=== PATIENT | male | born 1965 | race Caucasian/White ===

== ENCOUNTER 2017-07-19 11:44 | Emergency (ER) | payer MEDICAID ==
[~2017-07-19] VITALS: Ht 165.1 cm; Wt 73.0 kg
[2017-07-19 13:03] LABS: BASOPHILS % 0.6 % (0.0-2.0); EOSINOPHILS % 0.8 % (0.0-5.0); HEMATOCRIT. 41.4 % (42.0-52.0); HEMOGLOBIN. 14.3 g/dL (14.0-18.0); LYMPHOCYTES % 30.9 % (20.0-50.0); MEAN CORPUSCULAR HEMOGLOBIN 32.3 pg (28.0-32.0); MEAN CORPUSCULAR VOLUME 93.3 fL (80.0-94.0); MEAN PLATELET VOLUME 6.6 fl (7.4-10.4); MONOCYTES % 8.9 % (2.0-8.0); NEUTROPHILS % 58.8 % (40.0-76.0); PLATELET 153 x1000/uL (130-400); RED BLOOD CELL COUNT 4.44 mill/uL (4.7-6.1); RED CELL DISTRIBUTION WIDTH 13.5 % (11.6-14.6)
[2017-07-19 13:07] LABS: CHLORIDE 104 mEq/L (98-107)
[2017-07-19 13:15] VITALS: BP 116/76
== END 2017-07-19 14:32 | disposition home or self-care (01) ==
LOC: ER 12:17
DX: R07.9 Chest pain, unspecified (principal); R20.0 Anesthesia of skin; G50.0 Trigeminal neuralgia; E78.00 Pure hypercholesterolemia, unspecified
CPT/HCPCS: 36415; 71045; 80053; 83690; 84484; 85025; 85379; 93005; 99285; Z7610

== ENCOUNTER 2021-12-10 18:28 | Inpatient (IN) | payer MEDICAID, OTHER ==
[~2021-12-10] VITALS: Ht 165.1 cm; Wt 72.1 kg
[2021-12-10 19:46] LABS: BASOPHILS % 0.9 % (0.0-2.0); EOSINOPHILS % 0.3 % (0.0-5.0); LYMPHOCYTES % 21.6 % (20.0-50.0); MEAN CORPUSCULAR HEMOGLOBIN 34.1 pg (28.0-32.0); MEAN CORPUSCULAR VOLUME 102.3 fL (80.0-94.0); MEAN PLATELET VOLUME 7.8 fl (7.4-10.4); MONOCYTES % 8.4 % (2.0-8.0); NEUTROPHILS % 68.8 % (40.0-76.0); PLATELET 181 x1000/uL (130-400); RED CELL DISTRIBUTION WIDTH 14.4 % (11.6-14.6)
[2021-12-10 19:51] LABS: HEMATOCRIT. 15.3 % (42.0-52.0); HEMOGLOBIN. 5.1 g/dL (14.0-18.0)
[2021-12-10] MEDS ORDERED: PANTOPRAZOLE SODIUM 40 MG/VIAL IV ONE (20:15)
[2021-12-10 20:43] LABS: CHLORIDE 111 mEq/L (98-107)
[2021-12-10 20:44] LABS: TOTAL IRON BINDING CAPACITY 255 ug/dL (250-450)
[2021-12-10 20:52] LABS: ETHANOL BLOOD < 10 mg/dL
[2021-12-11] VITALS (13 sets, daily range): BP systolic 97–123; BP diastolic 52–74
[2021-12-11] MEDS ORDERED: MORPHINE SULFATE 2 MG/ML CPJ (NOT FOR IM USE) IV PRN (01:30)
[2021-12-11] MEDS ORDERED: ONDANSETRON HCL 4MG/2ML INJ IV PRN (01:30)
[2021-12-11] MEDS ORDERED: GABA-532 MT (02:05)
[2021-12-11] MEDS ORDERED: DULO60CA64 MT (02:08)
[2021-12-11] MEDS ORDERED: CARB200T6 MT (02:08)
[2021-12-11] MEDS ORDERED: CARB200C7 MT (02:08)
[2021-12-11] MEDS ORDERED: CHOL-36 (02:14)
[2021-12-11] MEDS ORDERED: ACET-3163 MT (02:14)
[2021-12-11] MEDS ORDERED: MAGN400T29 MT (02:14)
[2021-12-11] MEDS ORDERED: SIMV-43 MT (02:14)
[2021-12-11] MEDS ORDERED: NAPR-681 MT (02:15)
[2021-12-11] MEDS: DEXT 5%/0.45% NACL KCL 20MEQ/L 1,000 ML IV SCH ×3 (03:38→23:22)
[2021-12-11] MEDS ORDERED: PNEUMOCOCCAL 23-VAL P-SAC VAC 0.5 ML IM ONE (05:00)
[2021-12-11 06:18] LABS: HEMATOCRIT. 22.6 % (42.0-52.0); HEMOGLOBIN. 7.6 g/dL (14.0-18.0); MEAN CORPUSCULAR HEMOGLOBIN 32.8 pg (28.0-32.0); MEAN CORPUSCULAR VOLUME 97.6 fL (80.0-94.0); MEAN PLATELET VOLUME 7.6 fl (7.4-10.4); PLATELET 142 x1000/uL (130-400); RED BLOOD CELL COUNT 2.32 mill/uL (4.7-6.1); RED CELL DISTRIBUTION WIDTH 15.5 % (11.6-14.6)
[2021-12-11 06:34] LABS: CHLORIDE 112 mEq/L (98-107)
[2021-12-11 09:24] LABS: NUCLEATED RED BLOOD CELLS 1 /100 WBC; PLATELET ESTIMATE NORMAL
[2021-12-11] MEDS: PANTOPRAZOLE SODIUM 40 MG/VIAL IV SCH ×2 (09:26→21:34)
[2021-12-11] MEDS ORDERED: NALOXONE HCL 0.4MG/ML VIAL IV PRN (14:30)
[2021-12-11] MEDS ORDERED: CARB200T6 PO (17:28)
[2021-12-11] MEDS ORDERED: CHOL400D7 PO (17:30)
[2021-12-11 20:04] LABS: HEMATOCRIT 24.8 % (42.0-52.0); HEMOGLOBIN 8.2 g/dL (14.0-18.0)
[2021-12-12] VITALS (8 sets, daily range): BP systolic 93–119; BP diastolic 42–72
[2021-12-12 05:50] LABS: HEMATOCRIT. 23.5 % (42.0-52.0); HEMOGLOBIN. 7.9 g/dL (14.0-18.0); MEAN CORPUSCULAR HEMOGLOBIN 32.7 pg (28.0-32.0); MEAN CORPUSCULAR VOLUME 97.7 fL (80.0-94.0); MEAN PLATELET VOLUME 7.4 fl (7.4-10.4); PLATELET 152 x1000/uL (130-400); RED BLOOD CELL COUNT 2.41 mill/uL (4.7-6.1); RED CELL DISTRIBUTION WIDTH 15.9 % (11.6-14.6)
[2021-12-12 06:12] LABS: CHLORIDE 111 mEq/L (98-107)
[2021-12-12 06:17] LABS: PROTHROMBIN TIME 10.8 sec (9.6-11.0)
[2021-12-12] MEDS: DEXT 5%/0.45% NACL KCL 20MEQ/L 1,000 ML IV SCH ×2 (08:14→18:30)
[2021-12-12] MEDS: PANTOPRAZOLE SODIUM 40 MG/VIAL IV SCH ×2 (08:14→17:45)
[2021-12-12] MEDS ORDERED: SIMETHICONE 40 MG/0.6 ML 15ML ONE (09:56)
[2021-12-12] MEDS ORDERED: PROPOFOL 200MG/20ML VIAL IV ONE (10:21)
[2021-12-12 10:29] LABS: PLATELET ESTIMATE NORMAL
[2021-12-12] MEDS ORDERED: ONDANSETRON HCL 4MG/2ML INJ IV PRN (11:15)
[2021-12-12] MEDS ORDERED: CEFAZOLIN 1000MG PREMIX 50 ML IV NR (11:30)
[2021-12-12] MEDS: SUCRALFATE 1G TABLET PO SCH ×2 (12:19→17:46)
[2021-12-12] MEDS ORDERED: SUCR1TAB MT (17:44)
[2021-12-12] MEDS ORDERED: OMEP40CA20 MT (17:44)
[2021-12-12 20:26] LABS: HEMATOCRIT 29.3 % (42.0-52.0); HEMOGLOBIN 9.7 g/dL (14.0-18.0)
== END 2021-12-12 20:20 | disposition home or self-care (01) | DRG 241 ==
LOC: ER 18:28 → 8WST 20:29 → ENRESERV 23:06
PROVIDERS: ADMIT Internal Medicine; ATTEND Internal Medicine
PROC: 30233N1 Transfusion of Nonautologous Red Blood Cells into Peripheral Vein, Percutaneous Approach (ICD-10-PCS; 2021-12-10)
PROC: 0DB78ZX Excision of Stomach, Pylorus, Via Natural or Artificial Opening Endoscopic, Diagnostic (ICD-10-PCS; principal; 2021-12-12)
DX: K29.81 Duodenitis with bleeding (principal); E44.0 Moderate protein-calorie malnutrition; E87.8 Other disorders of electrolyte and fluid balance, not elsewhere classified; G90.8 Other disorders of autonomic nervous system; D62 Acute posthemorrhagic anemia; K25.0 Acute gastric ulcer with hemorrhage; G50.0 Trigeminal neuralgia; Z20.822 Contact with and (suspected) exposure to COVID-19; E78.5 Hyperlipidemia, unspecified; E78.00 Pure hypercholesterolemia, unspecified; Z68.26 Body mass index [BMI] 26.0-26.9, adult
CPT/HCPCS: 36415; 71045; 80048; 80053; 80320; 82270; 82728; 82962; 83540; 83550; 83880; 84484; 85014; 85018; 85025; 85044; 86850; 86900; 86920; 87426; 88305; 88312; 88313; 90732; 93005; 99291; C9113; J0690; J2704; P9016; G0480